=== PATIENT | female | born 2000 | race Caucasian/White ===

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

== ENCOUNTER 2020-02-25 20:55 | Emergency (ER) | payer MEDICAID ==
[~2020-02-25] VITALS: Ht 170.2 cm; Wt 104.3 kg
--- NOTE | 2020-02-25 20:55 | NUR ---
Patient to ER bed 03 to gown for evaluation. Side rails up.
--- NOTE | 2020-02-25 21:00 | NUR ---
EKG performed at by JENNIFER PAGAN. Physician given copy of EKG for review.
[2020-02-25 21:21] VITALS: BP_SYST 138
--- NOTE | 2020-02-25 21:30 | NUR ---
AAOX4, V/S STABLE. WILL MONITOR FOR SAFETY
--- NOTE | 2020-02-25 21:30 | NUR ---
PT CAME IN FROM HOME WITH CO CHEST PAIN FOR THE LAST 4 DAYS OFF AND ON. REPORTS BEING A MOTHER OF A 1 YEAR OLD AT HOME AND INCREASED STRESS. DENIES ANY MEDICAL HISTORY
[2020-02-25] MEDS ORDERED: NACL 0.9% 1,000 ML IV ONE (21:45)
[2020-02-25] MEDS ORDERED: METOPROLOL TARTRATE 5 MG/5 ML VIAL IVP ONE (21:45)
[2020-02-25 21:59] LABS: BASOPHILS # (AUTO) 0.1 K/uL (0.0-0.2); BASOPHILS % (AUTO) 0.7 % (0.0-2.0); EOSINOPHILS # (AUTO) 0.1 K/uL (0.0-0.4); EOSINOPHILS % (AUTO) 1.5 % (0.0-4.0); HEMATOCRIT 39.8 % (36-48); HEMOGLOBIN 13.3 g/dL (12.0-16.0); LYMPHOCYTES # (AUTO) 2.1 K/uL (1.0-5.5); LYMPHOCYTES % (AUTO) 21.3 % (20.5-51.5); MEAN CORPUSCULAR HEMOGLOBIN 28 pg (27-31); MEAN CORPUSCULAR HGB CONC 33 % (32-36); MEAN CORPUSCULAR VOLUME 84 fL (79.0-98.0); MONOCYTES # (AUTO) 0.7 K/uL (0.0-1.0); MONOCYTES % (AUTO) 7.1 % (1.7-9.3); NEUTROPHILS # (AUTO) 6.7 K/uL (1.8-7.7); NEUTROPHILS % (AUTO) 69.4 % (40.0-70.0); PLATELET COUNT (AUTO) 384 K/uL (130-430); RED BLOOD CELL COUNT(AUTO) 4.75 MIL/uL (4.2-6.2); WHITE BLOOD COUNT (AUTO) 9.7 K/uL (4.5-11.0)
[2020-02-25 22:11] LABS: ANION GAP 9 (5-15); CHLORIDE 102 mmol/L (98-107); CREATININE 0.92 mg/dL (0.55-1.30); GLUCOSE 99 mg/dL (70-99); POTASSIUM 3.8 mmol/L (3.5-5.1); SODIUM SERUM 138 mmol/L (136-145); UREA NITROGEN, BLOOD 11 mg/dL (8-21)
[2020-02-25 22:22] LABS: ALANINE AMINOTRANSFERASE 51 U/L (12-78); ALBUMIN 3.9 g/dL (3.4-4.8); ASPARTATE AMINOTRANSFERASE 30 U/L (10-37); TOTAL BILIRUBIN 0.2 mg/dL (0.0-1.0)
[2020-02-25 22:27] LABS: GFR AFRICAN AMERICAN 101 mL/min (>90)
[2020-02-25 22:43] VITALS: BP_SYST 126
== END 2020-02-25 22:34 | disposition home or self-care (01) ==
LOC: SED 20:55
DX: R07.89 Other chest pain (principal); R00.2 Palpitations
CPT/HCPCS: 36415; 71045; 80053; 81025; 84484; 85025; 93005; 96361; 96374; 99285; J3490; J7030

== ENCOUNTER 2020-04-05 12:28 | Emergency (ER) | payer MEDICAID ==
[~2020-04-05] VITALS: Ht 167.6 cm; Wt 90.7 kg
[2020-04-05 12:47] VITALS: BP_SYST 97
[2020-04-05 13:15] VITALS: BP_SYST 97
== END 2020-04-05 13:15 | disposition home or self-care (01) ==
LOC: SED 12:28
DX: G44.209 Tension-type headache, unspecified, not intractable (principal)
CPT/HCPCS: 99282

== ENCOUNTER 2021-05-13 09:50 | Inpatient (IN) | payer OTHER, SELFPAY ==
[~2021-05-13] VITALS: Ht 167.6 cm; Wt 98.4 kg
[2021-05-13] MEDS ORDERED: AMPICILLIN SODIUM 2 GM VIAL ONE (09:57)
[2021-05-13] MEDS ORDERED: AMPICILLIN SODIUM 2 GM in NS 100 ML IV ONE (10:00)
[2021-05-13] MEDS ORDERED: LR 1,000 ML IV SCH (10:00)
[2021-05-13] MEDS ORDERED: LR 1,000 ML IV ONE (10:00)
[2021-05-13] MEDS ORDERED: TERBUTALINE SULFATE 1 MG/ML VIAL SUBCUT ONE (10:00)
[2021-05-13] MEDS ORDERED: OXYTOCIN/0.9 % SODIUM CHLORIDE 1,000 ML IV SCH ×2 (10:00→11:30)
[2021-05-13] MEDS ORDERED: NALBUPHINE HCL 10 MG/ML AMP IVP PRN (10:00)
[2021-05-13 10:25] LABS: BASOPHILS % (AUTO) 0.2 % (0.0-2.0); EOSINOPHILS % (AUTO) 0.4 % (0.0-4.0); HEMATOCRIT 33.9 % (36-48); HEMOGLOBIN 11.2 g/dL (12.0-16.0); LYMPHOCYTES # (AUTO) 2.5 K/uL (1.0-5.5); LYMPHOCYTES % (AUTO) 20.7 % (20.5-51.5); MEAN CORPUSCULAR HEMOGLOBIN 27 pg (27-31); MEAN CORPUSCULAR HGB CONC 33 % (32-36); MEAN CORPUSCULAR VOLUME 82 fL (79.0-98.0); MONOCYTES # (AUTO) 0.6 K/uL (0.0-1.0); NEUTROPHILS # (AUTO) 8.9 K/uL (1.8-7.7); NEUTROPHILS % (AUTO) 73.7 % (40.0-70.0); PLATELET COUNT (AUTO) 268 K/uL (130-430); RED BLOOD CELL COUNT(AUTO) 4.13 MIL/uL (4.2-6.2); RED CELL DISTRIBUTION WIDTH 15.3 % (9.0-15.0); WHITE BLOOD COUNT (AUTO) 12.1 K/uL (4.8-10.8)
[2021-05-13] MEDS ORDERED: OXYCODONE/ACETAMINOPHEN 5-325 TABLET PO PRN ×2 (11:30)
[2021-05-13] MEDS ORDERED: LANOLIN 7 GM OINT. TP PRN (11:30)
[2021-05-13] MEDS ORDERED: DERMOPLAST SPRAY TP PRN (11:30)
[2021-05-13] MEDS ORDERED: HYDROcodone/ACETAMIN 5-325 MG TAB (NORCO/ VICODIN) PO PRN (11:30)
[2021-05-13] MEDS ORDERED: HYDROCORTISONE 0.5% CREAM 28.4 GM CREAM.GM. TP PRN (11:30)
[2021-05-13] MEDS ORDERED: ANUSOL 1 EA SUPP.RECT (PREPARATION H) RC PRN (11:30)
[2021-05-13] MEDS ORDERED: OXYTOCIN/0.9 % SODIUM CHLORIDE 1,000 ML IV ONE (11:30)
[2021-05-13] MEDS ORDERED: MEASLES,MUMPS&RUBELLA VACC/PF 12500 UNIT/0.5 ML VIAL SUBQ PRN (11:30)
[2021-05-13] MEDS ORDERED: WITCH HAZEL LEAF 1 MED.PAD MED.PAD TP PRN (11:30)
[2021-05-13] MEDS ORDERED: DIPH-TET-PERTUS Vaccine 0.5 ML VIAL (ADACEL) I.M. PRN (11:30)
[2021-05-13] MEDS ORDERED: RHO(D) IMMUNE GLOBULIN/MALTOSE 1500 UNITS/1.3 ML (WINHRO) IM PRN (11:30)
[2021-05-13] MEDS: IBUPROFEN 600 MG TABLET PO SCH ×3 (13:09→23:58)
[2021-05-13 17:51] VITALS: BP_SYST 138
[2021-05-13] MEDS ORDERED: TEMAZEPAM 15 MG CAPSULE PO PRN (21:00)
[2021-05-13] MEDS: SENNOSIDES/DOCUSATE SODIUM 1 TAB TABLET(SENOKOT-S) PO SCH ×2 (21:05→21:07)
[2021-05-14] MEDS: IBUPROFEN 600 MG TABLET PO SCH ×3 (05:59→17:43)
[2021-05-14 08:12] LABS: HEMATOCRIT 33.2 % (36-48); HEMOGLOBIN 10.9 g/dL (12.0-16.0)
[2021-05-14] MEDS: DOCUSATE SODIUM 100 MG CAPSULE PO SCH (08:19)
[2021-05-14] MEDS: SENNOSIDES/DOCUSATE SODIUM 1 TAB TABLET(SENOKOT-S) PO SCH (21:28)
[2021-05-15] MEDS: IBUPROFEN 600 MG TABLET PO SCH ×3 (00:13→11:46)
[2021-05-15] MEDS: SENNOSIDES/DOCUSATE SODIUM 1 TAB TABLET(SENOKOT-S) PO SCH (11:46)
[2021-05-15] MEDS: DOCUSATE SODIUM 100 MG CAPSULE PO SCH (11:46)
[2021-05-18 18:06] LABS: FTA-Ab (T PALLIDUM) Non Reactive (Non Reactive)
== END 2021-05-15 11:56 | disposition home or self-care (01) | DRG 560 ==
LOC: SPU 09:50
PROVIDERS: ADMIT Obstetrics & Gynecology; ATTEND Obstetrics & Gynecology
PROC: 10E0XZZ Delivery of Products of Conception, External Approach (ICD-10-PCS; principal; 2021-05-13)
DX: O62.3 Precipitate labor (principal); Z37.0 Single live birth; O99.824 Streptococcus B carrier state complicating childbirth; Z20.822 Contact with and (suspected) exposure to COVID-19; Z3A.37 37 weeks gestation of pregnancy
CPT/HCPCS: 36415; 85018; 85025; 86592; 86780; 86886; 86900; 86901; J0290; J2300; J2590